=== PATIENT | male | born 1945 | race Caucasian/White ===

== ENCOUNTER 2024-05-12 08:10 | Day surgery (SDC) | payer MEDICARE, BC ==
[2024-05-12] MEDS: Lactated Ringers 1,000 ML IV SCH (08:31)
[2024-05-12] MEDS ORDERED: fentaNYL 50 MCG/ML SDV ONE (08:55)
[2024-05-12] MEDS ORDERED: Ketamine 200 MG/20 ML MDV ONE (08:55)
[2024-05-12] MEDS ORDERED: ePHEDrine 50 MG/ML SDV ONE (08:55)
[2024-05-12] MEDS ORDERED: Phenylephrine 1% 10 MG/ML SDV ONE (08:55)
[2024-05-12] MEDS ORDERED: Propofol 200 MG/20 ML SDV ONE (08:55)
== END 2024-05-12 10:10 | disposition home or self-care (01) ==
LOC: CC.SDS 08:10
PROVIDERS: ATTEND Family Medicine
DX: D12.5 Benign neoplasm of sigmoid colon (principal); K57.30 Diverticulosis of large intestine without perforation or abscess without bleeding; I10 Essential (primary) hypertension; E78.5 Hyperlipidemia, unspecified; Z79.82 Long term (current) use of aspirin; Z79.899 Other long term (current) drug therapy; F17.210 Nicotine dependence, cigarettes, uncomplicated
CPT/HCPCS: 00811; 45380; 88305; 99100; J2371; J2704; J3010; J3490; J7120